=== PATIENT | female | born 1975 | race Caucasian/White ===

== ENCOUNTER 2017-03-15 12:16 | Emergency (ER) | payer OTHER ==
[2017-03-15 12:22] VITALS: TEMP 98.1
[2017-03-15] MEDS ORDERED: SODIUM CHLORIDE 0.9% 1,000 ML IV STA ×2 (13:14)
[2017-03-15] MEDS ORDERED: PANTOPRAZOLE 40 MG/10 ML VIAL IVP STA (13:14)
[2017-03-15] MEDS ORDERED: HYDROmorphone 1 MG/ML 1 ML SYRINGE IVP STA (13:14)
[2017-03-15] MEDS ORDERED: ONDANSETRON 4 MG/2 ML VIAL IVP STA (13:14)
--- NOTE | 2017-03-15 13:22 | ED ---
General Adult HPI - General Chief complaint: Abdominal Pain Stated complaint: Pelvic Pain Source: patient, RN notes reviewed Mode of arrival: ambulatory Limitations: no limitations - History of Present Illness Initial comments: Chief complaint and history of present illness this is a 42-year-old female with complaint of abdominal bloating on again off again for over a week. Today she developed right lower quadrant pain that was rather acute starting to subside. She has nausea but no vomiting no diarrhea. No change in appetite until today. - Related Data Home Medications Medication Instructions Recorded Confirmed Butalb/APAP/Caff 50-325-40Mg 1 tab PO Q4H PRN 03/15/17 03/15/17 [Fioricet 50-325-40] HYDROcodone/APAP 10-325MG [[place] 1 tab PO DAILY PRN 03/15/17 03/15/17 10-325] Previous Rx's Medication Instructions Recorded Ondansetron Odt [Zofran Odt] 4 mg PO Q8HR PRN #10 tab 03/15/17 Allergies Allergy/AdvReac Type Severity Reaction Status Date / Time Sulfa (Sulfonamide Allergy Unknown Verified 03/15/17 14:33 Antibiotics) Review of Systems ROS Statement: Those systems with pertinent positive or pertinent negative responses have been documented in the HPI. Review of systems. No visual acuity changes no complaint of headache or sore throat no chest pain or shortness of. She states she has a sensation of feeling bloated clothing not fitting properly. Also today she developed right lower quadrant pain. Reminiscent of ovarian cyst problems ears ago. Patient reports she's had on occasional on-again off-again vaginal bleeding she has had uterine ablation. She has seen her [employer] DEVELOPER for this same problem. Also history of endometriosis. Patient states that due to insurance changes she has not followed up concerning this particular problem. No neural problems. All systems are reviewed Past medical problems endometriosis presented as severe monthly cramps which clinically decreased after having had uterine ablation. She's also had a history of ovarian cysts. She had bilateral tubal ligation. Family history father had a stroke. Patient has a rash when she takes sulfa. She does smoke strongly encouraged to stop drinks alcohol rarely socially. ROS Other: All systems not noted in ROS Statement are negative. Past Medical History Additional Past Medical History / Comment(s): endometriosis, ovarian cysts History of Any Multi-Drug Resistant Organisms: None Reported Past Surgical History: Uterine Ablation Additional Past Surgical History / Comment(s): D&C Past Psychological History: No Psychological Hx Reported Smoking Status: Current every day smoker Past Alcohol Use History: None Reported Past Drug Use History: None Reported General Exam - General Exam Comments Initial Comments: General: The patient is awake and alert, mild distress because of abdominal cramping and nausea but no vomiting no diarrhea., States the pain was rather acute in and is starting to subside patient ports she almost left without being any more treatment. Vital signs show temperature 98.1 pulse OX 99% room air blood pressure 159/106. Patient denies having had high blood pressure in the past. Eye: Pupils are equal, round and reactive to light, extra-ocular movements are intact ; there is normal conjunctiva bilaterally. No signs of icterus. Ears, nose, mouth and throat: There are moist mucous membranes and no oral lesions. Neck: The neck is supple, there is no tenderness , no anterior cervical lymphadenopathy, thyroid not enlarged. Cardiovascular: There is a regular rate and rhythm. No murmur, rub or gallop is appreciated. Respiratory: Lungs are clear to auscultation, respirations are non-labored, breath sounds are equal. No wheezes, stridor, rales, or rhonchi. Gastrointestinal: Soft, non-distended, tender over the pubic area, no rebound or referred pain. Mild voluntary guarding . No CVA tenderness. Bowel sounds are unremarkable. Back: There is no tenderness to palpation in the midline. There is no obvious deformity. Musculoskeletal: Normal ROM, no tenderness, There is no pedal edema. There is no calf tenderness or swelling. Sensation intact. Pulses equal bilaterally 2+. Neurological: No complaint of any neuro deficits. No focal or lateralized findings appreciated. Skin: Skin is warm and dry and no rashes or lesions are noted. Limitations: no limitations Course Vital Signs 03/15/17 03/15/17 12:18 14:51 Temperature 98.1 F Pulse Rate 118 H 109 H Respiratory 20 18 Rate Blood Pressure 159/106 138/95 O2 Sat by Pulse 99 99 Oximetry Medical Decision Making - Medical Decision Making Medical decision making patient's white count is 9.9 hemoglobin 15 hematocrit of 42. Potassium 5.5 with BUN of 18 creatinine 0.87 GFR greater than 60. Urine clean no signs of infection. Urine test negative. Trichomonas negative. Amylase; lipase normal. Patient continued complaining of discomfort she was given IV Toradol with good effect. CT the abdomen and pelvis was ordered with IV and oral contrast. At this juncture the patient does not want the CAT scan she is pain-free. States that the pain returns she returned to have CAT scan or follow-up with family physician. Patient was otherwise told to increase fluids use a laxative if she has not had a bowel movement. Return emergency room for any changes. Risks of there being an acute problem and knee surgery was discussed with the patient and her significant other at bedside. She states that she will return emergency room if the pain returns. We also discussed the femoral acetabular impingement syndrome as suggested by the radiologist on the radiograph of the pelvis. - Lab Data Result diagrams: 03/15/17 13:35 03/15/17 13:35 Lab Results 03/15/17 03/15/17 03/15/17 Range/Units 13:35 13:35 13:35 WBC 9.9 (3.8-10.6) k/uL RBC 4.73 (3.80-5.40) m/uL Hgb 15.2 (11.4-16.0) gm/dL Hct 42.4 (34.0-46.0) % MCV 89.6 (80.0-100.0) fL MCH 32.2 (25.0-35.0) pg MCHC 35.9 (31.0-37.0) g/dL RDW 12.7 (11.5-15.5) % Plt Count 244 (150-450) k/uL Neutrophils % 80 % Lymphocytes % 12 % Monocytes % 4 % Eosinophils % 2 % Basophils % 1 % Neutrophils # 7.9 H (1.3-7.7) k/uL Lymphocytes # 1.2 (1.0-4.8) k/uL Monocytes # 0.4 (0-1.0) k/uL Eosinophils # 0.2 (0-0.7) k/uL Basophils # 0.1 (0-0.2) k/uL Sodium 138 (137-145) mmol/L Potassium 5.5 H (3.5-5.1) mmol/L Chloride 104 (98-107) mmol/L Carbon Dioxide 24 (22-30) mmol/L Anion Gap 10 mmol/L BUN 14 (7-17) mg/dL Creatinine 0.87 (0.52-1.04) mg/dL Est GFR (MDRD) Af Amer >60 (>60 ml/min/1.73 sqM) Est GFR (MDRD) Non-Af >60 (>60 ml/min/1.73 sqM) Glucose 99 (74-99) mg/dL Plasma Lactic Acid Arvind 0.6 L (0.7-2.0) mmol/L Calcium 9.8 (8.4-10.2) mg/dL Total Bilirubin 0.8 (0.2-1.3) mg/dL AST 27 (14-36) U/L ALT 33 (9-52) U/L Alkaline Phosphatase 48 (38-126) U/L Total Protein 7.7 (6.3-8.2) g/dL Albumin 4.9 (3.5-5.0) g/dL Amylase 53 (30-110) U/L Lipase 78 (23-300) U/L Urine Color Urine Appearance (Clear) Urine pH (5.0-8.0) Ur Specific [place] (1.001-1.035) Urine Protein (Negative) Urine Glucose (UA) (Negative) Urine Ketones (Negative) Urine Blood (Negative) Urine Nitrite (Negative) Urine Bilirubin (Negative) Urine Urobilinogen (<2.0) mg/dL Ur Leukocyte Esterase (Negative) Urine RBC (0-5) /hpf Urine WBC (0-5) /hpf Ur Squamous Epith Cells (0-4) /hpf Urine Bacteria (None) /hpf Urine HCG, Qual (Not Detectd) Trichomonas Ag (Rapid) (Negative) 03/15/17 03/15/17 03/15/17 Range/Units 14:00 14:00 14:00 WBC (3.8-10.6) k/uL RBC (3.80-5.40) m/uL Hgb (11.4-16.0) gm/dL Hct (34.0-46.0) % MCV (80.0-100.0) fL MCH (25.0-35.0) pg MCHC (31.0-37.0) g/dL RDW (11.5-15.5) % Plt Count (150-450) k/uL Neutrophils % % Lymphocytes % % Monocytes % % Eosinophils % % Basophils % % Neutrophils # (1.3-7.7) k/uL Lymphocytes # (1.0-4.8) k/uL Monocytes # (0-1.0) k/uL Eosinophils # (0-0.7) k/uL Basophils # (0-0.2) k/uL Sodium (137-145) mmol/L Potassium (3.5-5.1) mmol/L Chloride (98-107) mmol/L Carbon Dioxide (22-30) mmol/L Anion Gap mmol/L BUN (7-17) mg/dL Creatinine (0.52-1.04) mg/dL Est GFR (MDRD) Af Amer (>60 ml/min/1.73 sqM) Est GFR (MDRD) Non-Af (>60 ml/min/1.73 sqM) Glucose (74-99) mg/dL Plasma Lactic Acid Arvind (0.7-2.0) mmol/L Calcium (8.4-10.2) mg/dL Total Bilirubin (0.2-1.3) mg/dL AST (14-36) U/L ALT (9-52) U/L Alkaline Phosphatase (38-126) U/L Total Protein (6.3-8.2) g/dL Albumin (3.5-5.0) g/dL Amylase (30-110) U/L Lipase (23-300) U/L Urine Color Light Yellow Urine Appearance Cloudy H (Clear) Urine pH 7.5 (5.0-8.0) Ur Specific [place] 1.006 (1.001-1.035) Urine Protein Negative (Negative) Urine Glucose (UA) Negative (Negative) Urine Ketones Negative (Negative) Urine Blood Negative (Negative) Urine Nitrite Negative (Negative) Urine Bilirubin Negative (Negative) Urine Urobilinogen <2.0 (<2.0) mg/dL Ur Leukocyte Esterase Negative (Negative) Urine RBC <1 (0-5) /hpf Urine WBC <1 (0-5) /hpf Ur Squamous Epith Cells 3 (0-4) /hpf Urine Bacteria Rare H (None) /hpf Urine HCG, Qual Not Detected (Not Detectd) Trichomonas Ag (Rapid) Negative (Negative) Disposition Clinical Impression: Abdominal pain, Femoral acetabular impingement Disposition: Left Against Medical Advice Condition: Fair Instructions: Abdominal Pain (ED) Additional Instructions: Follow-up with family physician. Return emergency room if the pain returns. Use ibuprofen or Tylenol for discomfort in the meanwhile. Follow-up with your family physician concerning possible femoralacetabular impingement syndrome. Prescriptions: Ondansetron Odt [Zofran Odt] 4 mg PO Q8HR PRN #10 tab PRN Reason: Nausea Referrals: Toya Ibarra MD [Primary Care Provider] - 1-2 days Time of Disposition: 16:54
[2017-03-15 13:53] LABS: Basophils # (A) 0.1 k/uL (0-0.2); Basophils % (A) 1 %; CH 31.5; CHCM 35.3; Eosinophils # (A) 0.2 k/uL (0-0.7); Eosinophils % (A) 2 %; HCT 42.4 % (34.0-46.0); HDW 2.45; HGB 15.2 gm/dL (11.4-16.0); Luc # (Auto) 0.16; Luc % (Auto) 2; Lymphocytes # (A) 1.2 k/uL (1.0-4.8); Lymphocytes % (A) 12 %; MCH 32.2 pg (25.0-35.0); MCHC 35.9 g/dL (31.0-37.0); MCV 89.6 fL (80.0-100.0); Mean Platelet Volume 7.3; Monocytes # (A) 0.4 k/uL (0-1.0); Monocytes % (A) 4 %; Neutrophils # (A) 7.9 k/uL (1.3-7.7); Neutrophils % (A) 80 %; RBC 4.73 m/uL (3.80-5.40); RDW 12.7 % (11.5-15.5); WBC 9.9 k/uL (3.8-10.6)
[2017-03-15 13:58] LABS: ALT 33 U/L (9-52); AST 27 U/L (14-36); Alkaline Phosphatase 48 U/L (38-126); Amylase 53 U/L (30-110); Anion Gap 10 mmol/L; Blood Urea Nitrogen 14 mg/dL (7-17); Calcium 9.8 mg/dL (8.4-10.2); Carbon Dioxide 24 mmol/L (22-30); Chloride 104 mmol/L (98-107); Glucose 99 mg/dL (74-99); Non-African American GFR(MDRD) >60 (>60 ml/min/1.73 sqM); Potassium 5.5 mmol/L (3.5-5.1); Sodium 138 mmol/L (137-145); Total Bilirubin 0.8 mg/dL (0.2-1.3); Total Protein 7.7 g/dL (6.3-8.2)
[2017-03-15 14:35] LABS: Appearance,Urine Cloudy (Clear); Bacteria,Urine Rare /hpf; Bilirubin,Urine Negative (Negative); Glucose,Urine (UA) Negative (Negative); Ketones,Urine Negative (Negative); Leukocyte Esterase,Urine Negative (Negative); Nitrite,Urine Negative (Negative); PH, Urine 7.5 (5.0-8.0); Particle Count 3461; Protein,Urine Negative (Negative); RBC,Urine <1 /hpf (0-5); Specific Gravity,Urine 1.006 (1.001-1.035); Squamous Epithelial Cell,Urine 3 /hpf (0-4); UA Billing (MACRO vs. MICRO) MICRO; Urobilinogen,Urine <2.0 mg/dL (<2.0); WBC,Urine <1 /hpf (0-5)
[2017-03-15 14:52] VITALS: BP 138/95; PULSE 109; RESP 18
--- NOTE | 2017-03-15 14:53 | XR ---
EXAMINATION TYPE: XR abdomen 2V DATE OF EXAM ORDERED: 03/15/2017 HISTORY: abdominal pain. COMPARISON: None. FINDINGS: There has been a previous tubal ligation. The abdominal gas pattern is normal. There is no evidence of obstruction or free air. No unusual calc ifications are seen. The right femoral head is nonspherical. IMPRESSION: 1. NO ACUTE INTRA-ABDOMINAL ABNORMALITY. 2. PLEASE CORRELATE CLINICALLY FOR FEMOROACETABULAR IMPINGEMENT SYNDROME IMPINGEMENT SYNDROME
[2017-03-15] MEDS ORDERED: RX INFO: IV CONTRAST WAS GIVEN 1 EACH MISC MISCELLANE PRN (16:15)
[2017-03-15] MEDS ORDERED: IOHEXOL 350 MG/ML 25 ML BOTTLE (ORAL USE) PO PRN (16:15)
[2017-03-15] MEDS ORDERED: KETOROLAC 30 MG/ML 1 ML VIAL IVP STA (16:25)
== END 2017-03-15 17:03 | disposition left against medical advice (07) ==
LOC: EC 12:16
DX: M25.851 Other specified joint disorders, right hip (principal); R11.0 Nausea; R14.0 Abdominal distension (gaseous); F17.200 Nicotine dependence, unspecified, uncomplicated; Z88.2 Allergy status to sulfonamides
CPT/HCPCS: 36415; 80053; 87591; 87491; 82150; 83605; 83690; 85025; 81001; 81025; 87808; 87070; 87086; 74020; 99284; 96374; 96375 ×3; 96361 ×4; J2405; J1885; J1170; C9113; 87205

== ENCOUNTER 2017-12-23 21:16 | Emergency (ER) | payer OTHER ==
[2017-12-23 21:35] VITALS: RESP 18; TEMP 98.1
[2017-12-23] MEDS ORDERED: SODIUM CHLORIDE 0.9% 1,000 ML IV STA (22:10)
[2017-12-23] MEDS ORDERED: KETOROLAC 30 MG/ML 1 ML VIAL IVP STA (22:10)
[2017-12-23 22:30] LABS: Appearance,Urine Clear (Clear); Bilirubin,Urine Negative (Negative); Blood,Urine Negative (Negative); Color,Urine Colorless; Glucose,Urine (UA) Negative (Negative); Ketones,Urine Negative (Negative); Leukocyte Esterase,Urine Negative (Negative); Nitrite,Urine Negative (Negative); PH, Urine 6.5 (5.0-8.0); Protein,Urine Negative (Negative); Specific Gravity,Urine 1.004 (1.001-1.035); Urobilinogen,Urine <2.0 mg/dL (<2.0)
[2017-12-23 22:31] LABS: Basophils % (A) 0 %; Eosinophils # (A) 0.2 k/uL (0-0.7); Eosinophils % (A) 2 %; HCT 40.7 % (34.0-46.0); HGB 14.9 gm/dL (11.4-16.0); Lymphocytes # (A) 1.9 k/uL (1.0-4.8); Lymphocytes % (A) 18 %; MCH 30.8 pg (25.0-35.0); MCHC 36.5 g/dL (31.0-37.0); MCV 84.4 fL (80.0-100.0); Mean Platelet Volume 7.5; Monocytes # (A) 0.4 k/uL (0-1.0); Monocytes % (A) 4 %; Neutrophils # (A) 7.8 k/uL (1.3-7.7); Neutrophils % (A) 75 %; Platelet Count 268 k/uL (150-450); RBC 4.83 m/uL (3.80-5.40); RDW 12.5 % (11.5-15.5); WBC 10.4 k/uL (3.8-10.6)
[2017-12-23 22:47] LABS: Albumin 4.3 g/dL (3.5-5.0); Calcium 9.8 mg/dL (8.4-10.2); Total Bilirubin 0.3 mg/dL (0.2-1.3); Total Protein 6.8 g/dL (6.3-8.2)
[2017-12-23 22:55] LABS: Potassium 4.1 mmol/L (3.5-5.1)
--- NOTE | 2017-12-23 23:05 | ED ---
Abdominal Pain HPI - General Chief Complaint: Abdominal Pain Stated Complaint: ABD PAIN Time Seen by Provider: 12/23/17 21:55 Source: patient, RN notes reviewed Mode of arrival: ambulatory Limitations: no limitations - History of Present Illness Initial Comments: This is a 42-year-old female who presents to the emergency department with chief complaint of abdominal pain 4 days. Patient complains of right lower quadrant abdominal pain. She states that she has a history of ovarian cysts and that her current pain feels like an ovary problem. She states that she does have associated nausea but denies diarrhea or constipation, fevers or chills, chest pain or shortness of breath, dysuria or hematuria. Patient does state that she try to follow-up with Dr. Logan but no longer has medical insurance so cannot be seen by him. Patient denies any history of kidney stones. She does state that she has some right-sided low back pain as well. - Related Data Home Medications Medication Instructions Recorded Confirmed Dextroamphetamine/Amphetamine 20 mg PO BID 12/23/17 12/23/17 [Adderall] Allergies Allergy/AdvReac Type Severity Reaction Status Date / Time Sulfa (Sulfonamide Allergy Unknown Verified 12/23/17 21:56 Antibiotics) Review of Systems ROS Statement: Those systems with pertinent positive or pertinent negative responses have been documented in the HPI. ROS Other: All systems not noted in ROS Statement are negative. Past Medical History Additional Past Medical History / Comment(s): endometriosis, ovarian cysts History of Any Multi-Drug Resistant Organisms: None Reported Past Surgical History: Uterine Ablation Additional Past Surgical History / Comment(s): D&C Past Psychological History: No Psychological Hx Reported Smoking Status: Current every day smoker Past Alcohol Use History: None Reported Past Drug Use History: None Reported General Exam - General Exam Comments Initial Comments: General: Awake and alert, well-developed; in no apparent distress. HEENT: Head atraumatic, normocephalic. Pupils are equal, round and reactive to light. Extraocular movements intact. Oropharynx moist without erythema or exudate. Neck: Supple. Normal ROM. Cardiovascular: Regular rate and rhythm. No murmurs, rubs or gallops. Chest symmetrical. Respiratory: Lungs clear to auscultation bilaterally. No wheezes, rales or rhonchi. Normal respiratory effort with no use of accessory muscles. Abdomen: Soft, non-distended. Tenderness on palpation of right pelvic region. Negative Rovsing sign. No rigidity, rebound or guarding. Normal bowel sounds in all 4 quadrants. No CVA tenderness bilaterally. Musculoskeletal: Normal ROM, no tenderness bilateral upper and lower extremities. Ambulating normally. Skin: [place], warm and dry without rashes or lesions. Neurological: Alert and oriented x3. CN II-XII grossly intact. Speech is fluent and answers are appropriate. No focal neuro deficits. Psychiatric: Normal mood and affect. No overt signs of depression or anxiety noted. Limitations: no limitations Course Vital Signs 12/23/17 12/24/17 21:28 01:30 Temperature 98.1 F Pulse Rate 129 H 110 H Respiratory 18 18 Rate Blood Pressure 153/93 156/83 O2 Sat by Pulse 98 100 Oximetry Medical Decision Making - Medical Decision Making This is a 42-year-old female who presents to the emergency department with chief complaint of right-sided pelvic pain. Patient does report a history of ovarian cysts and states that this is what her previous ovarian cysts have felt like. Patient has been going on for 4 days. She also reports associated nausea. CBC, CMP and UA were within normal limits. Ultrasound of the pelvis revealed evidence for myometrial cysts. When I went to review findings with patient, she was fully dressed and stated that she was ready to leave and be discharged home. Patient's vital signs are stable and she is in no acute distress. She will be discharged home at this time. Recommended follow-up with an [employer] C[facility] DEVELOPER or her primary care provider within 1-2 days. Patient is in agreement with plan voices understanding. All questions were answered. - Lab Data Result diagrams: 12/23/17 22:20 12/23/17 22:20 Lab Results 12/23/17 12/23/17 12/23/17 Range/Units 22:20 22:20 22:20 WBC 10.4 (3.8-10.6) k/uL RBC 4.83 (3.80-5.40) m/uL Hgb 14.9 (11.4-16.0) gm/dL Hct 40.7 (34.0-46.0) % MCV 84.4 (80.0-100.0) fL MCH 30.8 (25.0-35.0) pg MCHC 36.5 (31.0-37.0) g/dL RDW 12.5 (11.5-15.5) % Plt Count 268 (150-450) k/uL Neutrophils % 75 % Lymphocytes % 18 % Monocytes % 4 % Eosinophils % 2 % Basophils % 0 % Neutrophils # 7.8 H (1.3-7.7) k/uL Lymphocytes # 1.9 (1.0-4.8) k/uL Monocytes # 0.4 (0-1.0) k/uL Eosinophils # 0.2 (0-0.7) k/uL Basophils # 0.0 (0-0.2) k/uL Sodium 140 (137-145) mmol/L Potassium 4.1 (3.5-5.1) mmol/L Chloride 104 (98-107) mmol/L Carbon Dioxide 24 (22-30) mmol/L Anion Gap 12 mmol/L BUN 14 (7-17) mg/dL Creatinine 1.00 (0.52-1.04) mg/dL Est GFR (CKD-EPI)AfAm 81 (>60 ml/min/1.73 sqM) Est GFR (CKD-EPI)NonAf 71 (>60 ml/min/1.73 sqM) Glucose 101 H (74-99) mg/dL Calcium 9.8 (8.4-10.2) mg/dL Total Bilirubin 0.3 (0.2-1.3) mg/dL AST 17 (14-36) U/L ALT 23 (9-52) U/L Alkaline Phosphatase 49 (38-126) U/L Total Protein 6.8 (6.3-8.2) g/dL Albumin 4.3 (3.5-5.0) g/dL Amylase 68 (30-110) U/L Lipase 82 (23-300) U/L Urine Color Urine Appearance (Clear) Urine pH (5.0-8.0) Ur Specific [place] (1.001-1.035) Urine Protein (Negative) Urine Glucose (UA) (Negative) Urine Ketones (Negative) Urine Blood (Negative) Urine Nitrite (Negative) Urine Bilirubin (Negative) Urine Urobilinogen (<2.0) mg/dL Ur Leukocyte Esterase (Negative) Urine HCG, Qual Not Detected (Not Detectd) 12/23/17 Range/Units 22:20 WBC (3.8-10.6) k/uL RBC (3.80-5.40) m/uL Hgb (11.4-16.0) gm/dL Hct (34.0-46.0) % MCV (80.0-100.0) fL MCH (25.0-35.0) pg MCHC (31.0-37.0) g/dL RDW (11.5-15.5) % Plt Count (150-450) k/uL Neutrophils % % Lymphocytes % % Monocytes % % Eosinophils % % Basophils % % Neutrophils # (1.3-7.7) k/uL Lymphocytes # (1.0-4.8) k/uL Monocytes # (0-1.0) k/uL Eosinophils # (0-0.7) k/uL Basophils # (0-0.2) k/uL Sodium (137-145) mmol/L Potassium (3.5-5.1) mmol/L Chloride (98-107) mmol/L Carbon Dioxide (22-30) mmol/L Anion Gap mmol/L BUN (7-17) mg/dL Creatinine (0.52-1.04) mg/dL Est GFR (CKD-EPI)AfAm (>60 ml/min/1.73 sqM) Est GFR (CKD-EPI)NonAf (>60 ml/min/1.73 sqM) Glucose (74-99) mg/dL Calcium (8.4-10.2) mg/dL Total Bilirubin (0.2-1.3) mg/dL AST (14-36) U/L ALT (9-52) U/L Alkaline Phosphatase (38-126) U/L Total Protein (6.3-8.2) g/dL Albumin (3.5-5.0) g/dL Amylase (30-110) U/L Lipase (23-300) U/L Urine Color Colorless Urine Appearance Clear (Clear) Urine pH 6.5 (5.0-8.0) Ur Specific [place] 1.004 (1.001-1.035) Urine Protein Negative (Negative) Urine Glucose (UA) Negative (Negative) Urine Ketones Negative (Negative) Urine Blood Negative (Negative) Urine Nitrite Negative (Negative) Urine Bilirubin Negative (Negative) Urine Urobilinogen <2.0 (<2.0) mg/dL Ur Leukocyte Esterase Negative (Negative) Urine HCG, Qual (Not Detectd) - Radiology Data Radiology results: report reviewed Transvaginal ultrasound impression: There are multiple small complex myometrial cysts. No adnexal mass. Minimal free fluid in the cul-de-sac. No endometrial thickening seen. Disposition Clinical Impression: Uterine cyst, Pelvic pain Disposition: HOME SELF-CARE Condition: Good Instructions: Pelvic Pain in Women (ED) Additional Instructions: Please follow up with an [facility] CQ DEVELOPER. Please follow up with primary care provider within 1-2 days. Return to emergency department if symptoms should worsen or any concerns arise. Referrals: Toya Ibarra MD [Primary Care Provider] - 1-2 days Time of Disposition: 01:53
--- NOTE | 2017-12-24 01:23 | US ---
EXAMINATION TYPE: US transvaginal DATE OF EXAM: 12/23/2017 COMPARISON: NONE CLINICAL HISTORY: pelvic pain hx ovarian cyst. Hx of ablation, tubal ligation TECHNIQUE: Transvaginal (TV). Date of LMP: years ago (patient unsure of date), ablation EXAM MEASUREMENTS: Uterus: 8.0 x 4.5 x 5.4 cm Endometrial Stripe: 0.6 cm Right Ovary: 3.7 x 1.7 x 1.7 cm Left Ovary: 2.0 x 1.4 x 1.3 cm 1. Uterus: Anteverted, multiple anechoic areas, largest measuring 1.0 x 0.7 x 0.9 with echogenic ovo id structure within 2. Endometrium: small amount of ff in endometrium 3. Right Ovary: wnl 4. Left Ovary: wnl Spectral, color and waveform doppler imaging shows good arterial and venous flow within the ovaries ; there is no evidence for ovarian torsion. 5. Bilateral Adnexa: wnl 6. Posterior cul-de-sac: ff in cul de sac IMPRESSION: There are multiple small complex myometrial cysts. No adnexal mass. Minimal free fluid in the cul-de-sac. No endometrial thickening seen.
[2017-12-24 01:31] VITALS: BP 156/83; PULSE 110
== END 2017-12-24 02:00 | disposition home or self-care (01) ==
LOC: EC 21:16
DX: N85.8 Other specified noninflammatory disorders of uterus (principal); F17.200 Nicotine dependence, unspecified, uncomplicated; Z87.42 Personal history of other diseases of the female genital tract; Z98.890 Other specified postprocedural states; Z79.899 Other long term (current) drug therapy; Z88.2 Allergy status to sulfonamides
CPT/HCPCS: 99284; 96374; 36415; 80053; 82150; 83690; 85025; 81003; 81025; 93975; 76830; J1885

== ENCOUNTER 2018-07-28 12:34 | Emergency (ER) | payer OTHER ==
[2018-07-28 12:38] VITALS: TEMP 98.1
--- NOTE | 2018-07-28 13:06 | ED ---
General Adult HPI - General Chief complaint: Abdominal Pain Stated complaint: abdominal pain Time Seen by Provider: 07/28/18 12:45 Source: patient, RN notes reviewed Mode of arrival: ambulatory Limitations: no limitations - History of Present Illness Initial comments: 43-year-old female with a past medical history of endometriosis and ovarian cysts presents to the emergency department for a chief complaint of lower abdominal pain times one month. Patient states she did try to see her ENFORCEMENT SAFETY OFFICER for this but they've no longer take her insurance. Patient states it is a dull aching pain of the lower abdomen worse in the right lower quadrant. He states at times the pain is sharp in the right lower quadrant. She denies fevers or chills. Patient does admit to urinary frequency but denies dysuria. Patient denies any concern for sexually transmitted diseases. She denies any vaginal discharge. Patient denies any chance of as she has had a tubal ligation. Patient states she does sometimes get nauseous when the pain is severe but denies vomiting. Patient has no other complaints at this time including shortness of breath, chest pain, headache, or visual changes. - Related Data Home Medications Medication Instructions Recorded Confirmed Dextroamphetamine/Amphetamine 20 mg PO BID 12/23/17 12/23/17 [Adderall] Allergies Allergy/AdvReac Type Severity Reaction Status Date / Time Sulfa (Sulfonamide Allergy Unknown Verified 07/28/18 12:37 Antibiotics) Review of Systems ROS Statement: Those systems with pertinent positive or pertinent negative responses have been documented in the HPI. ROS Other: All systems not noted in ROS Statement are negative. Past Medical History Additional Past Medical History / Comment(s): endometriosis, ovarian cysts History of Any Multi-Drug Resistant Organisms: None Reported Past Surgical History: Uterine Ablation Additional Past Surgical History / Comment(s): D&C Past Psychological History: No Psychological Hx Reported Smoking Status: Current every day smoker Past Alcohol Use History: None Reported Past Drug Use History: None Reported General Exam Limitations: no limitations General appearance: alert, in no apparent distress Head exam: Present: atraumatic, normocephalic, normal inspection Eye exam: Present: normal appearance, PERRL, EOMI. Absent: scleral icterus, conjunctival injection, periorbital swelling ENT exam: Present: normal exam, mucous membranes moist Neck exam: Present: normal inspection, full ROM. Absent: tenderness, meningismus, lymphadenopathy Respiratory exam: Present: normal lung sounds bilaterally. Absent: respiratory distress, wheezes, rales, rhonchi, stridor Cardiovascular Exam: Present: regular rate, normal rhythm, normal heart sounds. Absent: systolic murmur, diastolic murmur, rubs, gallop, clicks GI/Abdominal exam: Present: soft, tenderness (Tenderness to the right and left lower quadrants, worse in the right lower quadrant. Suprapubic tenderness. No upper abdominal tenderness in the right or left quadrants or epigastric area.), normal bowel sounds. Absent: distended, guarding, rebound, rigid External exam: Present: normal external exam Speculum exam: Present: vaginal discharge (Minimal white thin vaginal discharge) . Absent: erythema, vaginal bleeding, foreign body, tissue, laceration By manual exam: Present: adnexal tenderness (Right adnexal tenderness). Absent : cervical motion tenderness, adnexal mass, uterine enlargement Neurological exam: Present: alert, oriented X3, CN II-XII intact Psychiatric exam: Present: normal affect, normal mood Course Vital Signs 07/28/18 07/28/18 07/28/18 12:35 14:06 15:39 Temperature 98.1 F Pulse Rate 112 H 92 90 Respiratory 18 17 18 Rate Blood Pressure 159/100 131/84 130/90 O2 Sat by Pulse 99 98 99 Oximetry Medical Decision Making - Medical Decision Making 43-year-old female with a medical history of endometriosis and ovarian cysts presents to the emergency department for a chief complaint of lower abdominal pain times one month. Pelvic exam was performed and there is slight discharge. Patient denies concern for STD testing and refuses empiric treatment for gonorrhea and chlamydia were sent to the lab. CBC and CMP unremarkable. Amylase and lipase within normal limits. Urine does not show any evidence of infection. Ultrasound shows bilateral ovarian cysts. This appears hemorrhagic on the left. On reevaluation patient does has still tenderness over the right lower quadrant and states she would feel better if CAT scan was ordered to rule out appendicitis. I did discuss that this unlikely as patient does not have a fever or white count and this has been ongoing for a month. However CAT scan was ordered. The patient does have heterogeneous appearing uterus and bilateral ovarian cysts. Patient does have an appointment in 1 week with her OB /SENIOR ANDROID DEVELOPER that she will follow up with. She will return here if she has any worsening symptoms - Lab Data Result diagrams: 07/28/18 13:00 07/28/18 13:00 Lab Results 07/28/18 07/28/18 07/28/18 Range/Units 13:00 13:00 13:00 WBC 7.0 (3.8-10.6) k/uL RBC 5.05 (3.80-5.40) m/uL Hgb 15.3 (11.4-16.0) gm/dL Hct 46.2 H (34.0-46.0) % MCV 91.4 (80.0-100.0) fL MCH 30.4 (25.0-35.0) pg MCHC 33.2 (31.0-37.0) g/dL RDW 12.7 (11.5-15.5) % Plt Count 259 (150-450) k/uL Neutrophils % 68 % Lymphocytes % 22 % Monocytes % 5 % Eosinophils % 2 % Basophils % 1 % Neutrophils # 4.7 (1.3-7.7) k/uL Lymphocytes # 1.6 (1.0-4.8) k/uL Monocytes # 0.4 (0-1.0) k/uL Eosinophils # 0.2 (0-0.7) k/uL Basophils # 0.1 (0-0.2) k/uL Sodium 139 (137-145) mmol/L Potassium 4.6 (3.5-5.1) mmol/L Chloride 109 H (98-107) mmol/L Carbon Dioxide 23 (22-30) mmol/L Anion Gap 7 mmol/L BUN 11 (7-17) mg/dL Creatinine 0.80 (0.52-1.04) mg/dL Est GFR (CKD-EPI)AfAm >90 (>60 ml/min/1.73 sqM) Est GFR (CKD-EPI)NonAf >90 (>60 ml/min/1.73 sqM) Glucose 98 (74-99) mg/dL Calcium 9.4 (8.4-10.2) mg/dL Total Bilirubin 0.3 (0.2-1.3) mg/dL AST 21 (14-36) U/L ALT 29 (9-52) U/L Alkaline Phosphatase 49 (38-126) U/L Total Protein 7.0 (6.3-8.2) g/dL Albumin 4.3 (3.5-5.0) g/dL Amylase 66 (30-110) U/L Lipase 75 (23-300) U/L Urine Color Urine Appearance (Clear) Urine pH (5.0-8.0) Ur Specific [place] (1.001-1.035) Urine Protein (Negative) Urine Glucose (UA) (Negative) Urine Ketones (Negative) Urine Blood (Negative) Urine Nitrite (Negative) Urine Bilirubin (Negative) Urine Urobilinogen (<2.0) mg/dL Ur Leukocyte Esterase (Negative) Urine RBC (0-5) /hpf Urine WBC (0-5) /hpf Ur Squamous Epith Cells (0-4) /hpf Urine Bacteria (None) /hpf Urine Mucus (None) /hpf Urine HCG, Qual Not Detected (Not Detectd) 07/28/18 Range/Units 13:00 WBC (3.8-10.6) k/uL RBC (3.80-5.40) m/uL Hgb (11.4-16.0) gm/dL Hct (34.0-46.0) % MCV (80.0-100.0) fL MCH (25.0-35.0) pg MCHC (31.0-37.0) g/dL RDW (11.5-15.5) % Plt Count (150-450) k/uL Neutrophils % % Lymphocytes % % Monocytes % % Eosinophils % % Basophils % % Neutrophils # (1.3-7.7) k/uL Lymphocytes # (1.0-4.8) k/uL Monocytes # (0-1.0) k/uL Eosinophils # (0-0.7) k/uL Basophils # (0-0.2) k/uL Sodium (137-145) mmol/L Potassium (3.5-5.1) mmol/L Chloride (98-107) mmol/L Carbon Dioxide (22-30) mmol/L Anion Gap mmol/L BUN (7-17) mg/dL Creatinine (0.52-1.04) mg/dL Est GFR (CKD-EPI)AfAm (>60 ml/min/1.73 sqM) Est GFR (CKD-EPI)NonAf (>60 ml/min/1.73 sqM) Glucose (74-99) mg/dL Calcium (8.4-10.2) mg/dL Total Bilirubin (0.2-1.3) mg/dL AST (14-36) U/L ALT (9-52) U/L Alkaline Phosphatase (38-126) U/L Total Protein (6.3-8.2) g/dL Albumin (3.5-5.0) g/dL Amylase (30-110) U/L Lipase (23-300) U/L Urine Color Yellow Urine Appearance Cloudy H (Clear) Urine pH 7.0 (5.0-8.0) Ur Specific [place] 1.017 (1.001-1.035) Urine Protein Negative (Negative) Urine Glucose (UA) Negative (Negative) Urine Ketones Negative (Negative) Urine Blood Negative (Negative) Urine Nitrite Negative (Negative) Urine Bilirubin Negative (Negative) Urine Urobilinogen <2.0 (<2.0) mg/dL Ur Leukocyte Esterase Negative (Negative) Urine RBC 2 (0-5) /hpf Urine WBC 1 (0-5) /hpf Ur Squamous Epith Cells 7 H (0-4) /hpf Urine Bacteria Occasional H (None) /hpf Urine Mucus Rare H (None) /hpf Urine HCG, Qual (Not Detectd) Disposition Clinical Impression: Abdominal pain Disposition: HOME SELF-CARE Condition: Good Instructions: Abdominal Pain (ED) Additional Instructions: Please follow up with ENFORCEMENT SAFETY OFFICER in one to 2 days. Please take Motrin and Tylenol for pain. Return if you have any worsening symptoms. Is patient prescribed a controlled substance at d/c from ED?: No Referrals: Cristina Madsen MD [STAFF PHYSICIAN] - 1-2 days Time of Disposition: 16:31
[2018-07-28] MEDS ORDERED: KETOROLAC 30 MG/ML 1 ML VIAL IVP STA (13:13)
[2018-07-28] MEDS ORDERED: SODIUM CHLORIDE 0.9% 1,000 ML IV STA (13:13)
[2018-07-28 13:22] LABS: Basophils # (A) 0.1 k/uL (0-0.2); Basophils % (A) 1 %; Eosinophils # (A) 0.2 k/uL (0-0.7); Eosinophils % (A) 2 %; HCT 46.2 % (34.0-46.0); HGB 15.3 gm/dL (11.4-16.0); Lymphocytes # (A) 1.6 k/uL (1.0-4.8); Lymphocytes % (A) 22 %; MCH 30.4 pg (25.0-35.0); MCHC 33.2 g/dL (31.0-37.0); MCV 91.4 fL (80.0-100.0); Mean Platelet Volume 7.2; Monocytes # (A) 0.4 k/uL (0-1.0); Monocytes % (A) 5 %; Neutrophils # (A) 4.7 k/uL (1.3-7.7); Neutrophils % (A) 68 %; Platelet Count 259 k/uL (150-450); RBC 5.05 m/uL (3.80-5.40); RDW 12.7 % (11.5-15.5)
[2018-07-28 13:32] LABS: Appearance,Urine Cloudy (Clear); Bacteria,Urine Occasional /hpf; Bilirubin,Urine Negative (Negative); Blood,Urine Negative (Negative); Color,Urine Yellow; Glucose,Urine (UA) Negative (Negative); Ketones,Urine Negative (Negative); Leukocyte Esterase,Urine Negative (Negative); Mucus,Urine Rare /hpf; Nitrite,Urine Negative (Negative); Protein,Urine Negative (Negative); RBC,Urine 2 /hpf (0-5); Specific Gravity,Urine 1.017 (1.001-1.035); Squamous Epithelial Cell,Urine 7 /hpf (0-4); Urobilinogen,Urine <2.0 mg/dL (<2.0); WBC,Urine 1 /hpf (0-5)
[2018-07-28 13:35] LABS: ALT 29 U/L (9-52); AST 21 U/L (14-36); Albumin 4.3 g/dL (3.5-5.0); Alkaline Phosphatase 49 U/L (38-126); Amylase 66 U/L (30-110); Anion Gap 7 mmol/L; Blood Urea Nitrogen 11 mg/dL (7-17); Calcium 9.4 mg/dL (8.4-10.2); Carbon Dioxide 23 mmol/L (22-30); Chloride 109 mmol/L (98-107); Glucose 98 mg/dL (74-99); Lipase 75 U/L (23-300); Potassium 4.6 mmol/L (3.5-5.1); Sodium 139 mmol/L (137-145); Total Bilirubin 0.3 mg/dL (0.2-1.3)
--- NOTE | 2018-07-28 14:58 | US ---
EXAMINATION TYPE: US transvaginal DATE OF EXAM: 07/28/2018 COMPARISON: NONE CLINICAL HISTORY: Pain. rlq pain that is now moving up through abdomen, h/o endometriosis, ovarian cy sts, D&C, ablation TECHNIQUE: TV. Date of LMP: 5+ years ago EXAM MEASUREMENTS: Uterus: 9.3 x 6.1 x 4.8 cm Endometrial Stripe: 2.2 cm Right Ovary: 2.0 x 1.7 x 1.3 cm Left Ovary: 3.5 x 2.1 x 2.2 cm 1. Uterus: Anteverted heterogeneous with no focal anomaly seen 2. Endometrium: thickened with internal debris and echogenic solid component 3. Right Ovary: 1.4cm simple appearing cyst seen 4. Left Ovary: 2.3cm complex cyst , this contains internal echoes and could be a hemorrhagic cyst. Spectral, color and waveform doppler imaging shows good arterial and venous flow within the ovaries ; there is no evidence for ovarian torsion. 5. Bilateral Adnexa: wnl 6. Posterior cul-de-sac: wnl IMPRESSION: 1. Bilateral ovarian cysts. This appears complex on the left and follow-up is recommended.
[2018-07-28 15:39] VITALS: BP 130/90; PULSE 90; RESP 18
--- NOTE | 2018-07-28 16:27 | CT ---
EXAMINATION TYPE: CT abdomen pelvis w con DATE OF EXAM: 07/28/2018 COMPARISON: Ultrasound 07/28/2018 INDICATION: Pelvic and back pain. DLP: 626.1 mGycm, Automated exposure control for dose reduction was used. CONTRAST: 100 mL of Isovue 300. Study performed without Oral Contrast TECHNIQUE: Axial images were obtained from above the diaphragm to the pubic rami in the axial plane a t 5 mm thick sections. Reconstructed images are reviewed on the computer in the coronal plane. FINDINGS: Limited CT sections are obtained the lung bases. The lung bases are clear. CT ABDOMEN: Liver: Normal Spleen: Normal Pancreas: Normal Adrenal glands: The adrenal glands are normal. Gallbladder: Normal Kidneys: No masses are evident. No hydronephrosis is present. No cysts are present. Delayed images were obtained through the kidneys, which remain unremarkable. Aorta: Normal Inferior vena cava: Normal. CT PELVIS: Loops of bowel within the abdomen and pelvis are normal. There are loops of bowel which are incom pletely distended or lack oral contrast limiting their evaluation. Appendix: Normal as visualized. Urinary bladder: Normal. Genitourinary structures: Uterus is bulky. There is a 1.9 cm hypodensity within the left body of the uterus. Adnexa contain hypodensities. One of these appears to be an involuting cyst on the left ovary . Follow-up pelvic ultrasound is recommended. Osseous structures: No suspicious lytic or sclerotic lesions. IMPRESSIONS: 1. Heterogenous appearing uterus. 2. Bilateral ovarian cysts. This appears to be an involuting on the left which potentially could rafael elate with the ultrasound findings. 3. Recommend follow-up ultrasound in 6 weeks following the next normal menstrual period to reevaluate the pelvic findings.
[2018-07-28] MEDS ORDERED: ONDANSETRON 4 MG/2 ML VIAL IVP STA (16:36)
[2018-07-28] MEDS ORDERED: MORPHINE SULFATE 4 MG/ML SYRINGE IVP STA (16:36)
[2018-07-30 13:23] LABS: C. trachomatis,PCR Negative (Neg,Equiv); Chlamydia trachomatis Source Vagina; N. gonorrhoeae,PCR Negative (Neg,Equiv); Neisseria Source Vagina
== END 2018-07-28 17:05 | disposition home or self-care (01) ==
LOC: EC 12:34
DX: N83.201 Unspecified ovarian cyst, right side (principal); N83.202 Unspecified ovarian cyst, left side; R35.0 Frequency of micturition; R11.0 Nausea; F17.200 Nicotine dependence, unspecified, uncomplicated; Z79.899 Other long term (current) drug therapy; Z88.2 Allergy status to sulfonamides
CPT/HCPCS: 36415; 80053; 82150; 83690; 85025; 81001; 81025; 87491; 87591; 93975; 76830; 74177; 99284; 96374; 96375 ×2; 96361; J2270; J2405; J1885; Q9967

== ENCOUNTER → 2020-10-07 | Outpatient (CLI) | payer OTHER ==
--- NOTE | 2020-10-08 06:49 | US ---
EXAMINATION TYPE: US transvaginal DATE OF EXAM: 10/07/2020 COMPARISON: CT abdomen and pelvis and prior transvaginal pelvic ultrasound July 28, 2018 CLINICAL HISTORY: N83.0 OVARIAN CYST. hx ovarian cysts per patient. Generalized pelvic pain. Hx end ometrial ablation. TECHNIQUE: Transvaginal (TV). Date of LMP: 2010, EXAM MEASUREMENTS: Uterus: 7.6 x 4.7 x 4.2 cm Right Ovary: 2.2 x 1.7 x 1.2 cm Left Ovary: 2.5 x 1.7 x 1.3 cm 1. Uterus: Anteverted Heterogenous. Left cystic lesion = 1.6 x 1.1 cm with internal debris that ap pears to moving within a tract through the uterine fundus. 2. Endometrium: Not well visualized due to ablation 3. Right Ovary: wnl 4. Left Ovary: wnl 5. Bilateral Adnexa: wnl 6. Posterior cul-de-sac: no free fluid Markedly heterogeneous uterus. Poor visualization of endometrial stripe after ablation. There is a 1. 6 cm old well-defined hypoechoic lesion with increased through transmission felt to reflect debris-fi lled intramural cyst likely corresponding to lesion seen on prior CT and ultrasound No free fluid in pelvic cul-de-sac. Both ovaries are identified and symmetric and normal in size. No suspicious adnexal masses. IMPRESSION: Stable 1.6 cm intramural thin-walled cystic lesion in the uterine myometrium likely with internal debris. No significant change from 2018 studies.
== END | disposition home or self-care (01) ==
LOC: RADUSWWP 14:52
PROVIDERS: ATTEND Internal Medicine
DX: N85.8 Other specified noninflammatory disorders of uterus (principal)
CPT/HCPCS: 76830

== ENCOUNTER 2024-12-08 10:29 | Emergency (ER) | payer OTHER ==
--- NOTE | 2024-12-08 11:21 | ED ---
ENT HPI - General Chief complaint: ENT Stated complaint: left ear pain,dizzy Time Seen by Provider: 12/08/24 10:45 Source: patient, RN notes reviewed Mode of arrival: ambulatory Limitations: no limitations - History of Present Illness Initial comments: Quick note: This is a 49-year-old female presenting for left ear issues x 1 month. Patient endorses decreased hearing in affected ear as well as transient otorrhea. Endorses use of Keflex 2 weeks ago with no relief. Patient denies any current pain but endorses some dizziness and nausea. - Related Data Home Medications Medication Instructions Recorded Confirmed Dextroamphetamine/Amphetamine 20 mg PO BID 12/23/17 12/23/17 [Adderall] Previous Rx's Medication Instructions Recorded Meclizine [Antivert] 25 mg PO TID PRN #15 tab 12/08/24 ondansetron HCL [Zofran] 8 mg PO Q8HR PRN #15 tab 12/08/24 Allergies Allergy/AdvReac Type Severity Reaction Status Date / Time Sulfa (Sulfonamide Allergy Unknown Verified 12/08/24 10:32 Antibiotics) Review of Systems ROS Statement: Those systems with pertinent positive or pertinent negative responses have been documented in the HPI. ROS Other: All systems not noted in ROS Statement are negative. Past Medical History Additional Past Medical History / Comment(s): endometriosis, ovarian cysts History of Any Multi-Drug Resistant Organisms: None Reported Past Surgical History: Uterine Ablation Additional Past Surgical History / Comment(s): D&C Past Psychological History: No Psychological Hx Reported Smoking Status: Current every day smoker Past Alcohol Use History: None Reported Past Drug Use History: None Reported General Exam - General Exam Comments Initial Comments: Visual Physical Exam Vital signs reviewed General: Well-appearing, nontoxic, no acute distress. Head: Normocephalic, atraumatic Eyes: PERRLA, EOMI ENT: Airway patent Chest: Nonlabored breathing Skin: No visual rash, normal skin tone Neuro: Alert and oriented 3 Musculoskeletal: No gross abnormalities Limitations: no limitations Course Vital Signs 12/08/24 10:30 Temperature 97.7 F Pulse Rate 118 H Respiratory 22 Rate Blood Pressure 110/63 O2 Sat by Pulse 98 Oximetry Medical Decision Making - Medical Decision Making I completed the quick note portion of this chart signed BRIDGET Thacker Disposition Clinical Impression: Dysfunction of left eustachian tube Disposition: HOME SELF-CARE Condition: Good Instructions (If sedation given, give patient instructions): Earache (ED) Additional Instructions: Flonase nasal spray every 12 hours as needed. Follow-up with ENT for any ongoing or worsening symptoms. Prescriptions: Meclizine [Antivert] 25 mg PO TID PRN #15 tab PRN Reason: Vertigo ondansetron HCL [Zofran] 8 mg PO Q8HR PRN #15 tab PRN Reason: Nausea Is patient prescribed a controlled substance at d/c from ED?: No Referrals: None,Stated [Primary Care Provider] - 1-2 days Lennox Stephenson DO [Doctor of Osteopathic Medicine] - 1-2 days Marie Sandoval MD [STAFF PHYSICIAN] - 1-2 days Time of Disposition: 12:06
[2024-12-08] MEDS: MECLIZINE 12.5 MG TAB PO STA (12:20)
[2024-12-08] MEDS: ONDANSETRON ODT 4 MG TAB PO STA (12:21)
[2024-12-08 12:25] VITALS: BP 112/70; PULSE 102; RESP 20; TEMP 98
== END 2024-12-08 12:22 | disposition home or self-care (01) ==
LOC: EC 10:29
DX: H69.82 Other specified disorders of Eustachian tube, left ear (principal); F17.200 Nicotine dependence, unspecified, uncomplicated; Z88.2 Allergy status to sulfonamides
CPT/HCPCS: 99282